=== PATIENT | male | born 1975 | race Caucasian/White ===

== ENCOUNTER 2016-05-20 18:46 | Emergency (ER) | payer BC, OTHER ==
[~2016-05-20] VITALS: Ht 182.9 cm; Wt 104.3 kg
[2016-05-20] MEDS ORDERED: TETANUS,DIPTH,PERTUSS P/F (BOOSTRIX) 0.5 ML VIAL IM STA (19:04)
[2016-05-20] MEDS ORDERED: morphine INJ 10 MG/ML 1ML (SYR OR VIAL) IM STA (19:04)
--- NOTE | 2016-05-20 19:09 | ED General ---
General Chief Complaint: Foreign Body Stated Complaint: R FOOT INJ Nursing Triage Note: pt reports he stepped on rhibar while walking barefoot. puncture wound noted to r foot. Nursing Sepsis Screen: No Definite Risk Source of Information: Patient, Spouse Exam Limitations: No Limitations History of Present Illness Time Seen by Provider: 18:56 Initial Comments 40-year-old male patient presents to the emergency Department with reports of jumping off of the bed of his truck and landing on rebar. Patient states he was barefoot at the time of incident. Reports the rebar went into the right foot. Location Injury Occurred: home Timing/Duration: 1/2 Hour Modifying Factors: worse with Medication, worse with Other (worse with palpation) Allergies and Home Medications Allergies Coded Allergies: No Known Drug Allergies (Unverified , 05/20/16) Home Medications Clindamycin HCl 300 Mg Capsule, 300 MG PO Q8H, #28 Ref 0 Prescribed by: COLT CONCEPCION on 05/20/162058 Tramadol HCl 50 Mg Tablet, 50 MG PO Q4H PRN for PAIN, #20 Ref 0 Prescribed by: COLT CONCEPCION on 05/20/162100 Constitutional: no symptoms reported Respiratory: no symptoms reported Cardiovascular: no symptoms reported Musculoskeletal: see HPI Skin: see HPI Psychiatric/Neurological: Denies Numbness, Denies Paresthesia, Denies Tingling , Denies Weakness All Other Systems Reviewed Negative Unless Noted: Yes (Negative excepted noted.) Past Yhljjvh-Twajqt-Uihtcp Hx Patient Social History Alcohol Use: Denies Use Recreational Drug Use: No Smoking Status: Former Smoker Type Used: Cigarettes 2nd Hand Smoke Exposure: No Recent Foreign Travel: No Contact w/Someone Who Travel: No Recent Infectious Disease Expo: No Recent Hopitalizations: No Immunizations Up To Date Tetanus Booster (TDap): More than 5yrs Seasonal Allergies Seasonal Allergies: No Surgeries HX Surgeries: No Respiratory Hx Respiratory Disorders: No Cardiovascular Hx Cardiac Disorders: No Neurological Hx Neurological Disorders: No Reproductive System Hx Reproductive Disorders: No Genitourinary Hx Genitourinary Disorders: No Gastrointestinal Hx Gastrointestinal Disorders: No Musculoskeletal Hx Musculoskeletal Disorders: No Endocrine Hx Endocrine Disorders: No HEENT HX ENT Disorders: No Cancer Hx Cancer: No Psychosocial Hx Psychiatric Problems: No Integumentary HX Skin/Integumentary Disorder: No Blood Transfusions Hx Blood Disorders: No Reviewed Nursing Assessment Reviewed/Agree w Nursing PMH: Yes Family Medical History Significant Family History: No Pertinent Family Hx Physical Exam Vital Signs Vital Sign - Last 12Hours 05/20/16 18:56 Temp 98.4 Pulse 80 Resp 18 B/P (MAP) 124/91 Pulse Ox 95 Capillary Refill : Less Than 3 Seconds General Appearance: No Apparent Distress, WD/WN Cardiovascular: No Edema, Normal Peripheral Pulses Extremity: Normal Capillary Refill, Normal Range of Motion, No Pedal Edema, Other (puncture wound of the plantar mid right foot without active bleeding. No visible foreign body noted. Soft tissue tenderness. Negative bony tenderness. Minimal swelling noted. Right ankle, leg, and knee negative for deformity, tenderness, or swelling.) Neurologic/Psychiatric: Alert, Oriented x3, No Motor/Sensory Deficits, Normal Mood/Affect Skin: Normal Color, Warm/Dry, No Cool, No Cyanosis, No Mottled, Other ( puncture wound of the plantar mid right foot without active bleeding. No visible foreign body noted. Soft tissue tenderness.) Progress/Results/Core Measures Results/Orders My Orders Orders - COLT CONCEPCION Foot, Right, 3 View (05/20/16 19:04) Morphine Injection (Morphine Injection (05/20/16 19:04) Dipht,Pertuss(Acell),Tet Adult (Boostrix (05/20/16 19:04) Lidocaine/Epi 1% 1:100,000 (Xylocaine /E (05/20/16 19:04) Rx-Clindamycin Capsule (Rx-Cleocin Capsu (05/20/16 21:01) Vital Signs/I&O Vital Sign - Last 12Hours 05/20/16 05/20/16 18:56 21:29 Temp 98.4 98.4 Pulse 80 68 Resp 18 18 B/P (MAP) 124/91 Pulse Ox 95 99 Blood Pressure Mean: 102 Diagnostic Imaging Diagonstic Imaging: Xray Plain Films/CT/US/NM/MRI: other (right foot) Comments FINDINGS: No fracture or traumatic malalignment. No evidence of metatarsal stress fracture no radiopaque foreign body. Small dorsal calcaneal spur. IMPRESSION: 1. No acute fracture or traumatic malalignment. 2. No radiopaque foreign body. Dictated by: Dictated on workstation # [id number] Reviewed: Reviewed by Me (radiology report reviewed by me) Departure Communication Progress Notes 2052 patient case discussed with Dr. Underwood. Recommends leaving the wound open as well as having patient soak his foot in chlorhexidine and water twice a day. Recommend follow-up in his office as an outpatient for recheck. Foot dressed with 4 x 4 gauze, Kerlix, and a 3 inch Connor wrap. Patient given a postoperative shoe and crutches. Patient instructed follow-up with Dr. Underwood as an outpatient for recheck and to call his office tomorrow for appointment time. Return precautions were discussed with the patient as described in the discharge instructions of this report. Patient voices understanding and agrees with the treatment plan. Impression Impression: Primary Impression: Puncture wound of foot, right Qualified Codes: S91.331A - Puncture wound without foreign body, right foot, initial encounter Disposition: 01 HOME, SELF-CARE Condition: Improved Departure-Patient Inst. Decision time for Depature: 20:53 Referrals: YAHIR UNDERWOOD MD,LOCAL PHYSICIAN (PCP) Primary Care Physician Patient Instructions: Wound Care (DC) Add. Discharge Instructions: All discharge instructions reviewed with patient and/or family. Voiced understanding. Medications as directed. Tylenol over the counter as directed for pain. Motrin 800 mg by mouth every 8 hours as needed for pain. Soak your right foot in chlorhexidine and water twice daily for 7-10 days. Cover wound with gauze. Shower with antibacterial soap. Ice packs as needed for pain. Elevate the right foot on pillows as much as possible. All of Dr. Underwood as an outpatient for a recheck. Contact his office for appointment time. Return to the emergency department for worsened pain, redness, fever, drainage, or any other concerns. Scripts Tramadol HCl (Tramadol HCl) 50 Mg Tablet 50 MG PO Q4H Y for PAIN, #20 TAB 0 Refills Prov: COLT CONCEPCION 05/20/16 Clindamycin HCl (Clindamycin HCl) 300 Mg Capsule 300 MG PO Q8H, #28 CAP 0 Refills Prov: COLT CONCEPCION 05/20/16 COLT CONCEPCION May 20, 2016 19:08
--- NOTE | 2016-05-20 20:03 | Diagnostic Imaging Report ---
PROCEDURE: Foot, right, 3 view. COMPARISON: None available. INDICATION: Right foot pain after penetrating injury. TECHNIQUE: Non-weight bearing AP, oblique, and lateral views of the foot. FINDINGS: No fracture or traumatic malalignment. No evidence of metatarsal stress fracture no radiopaque foreign body. Small dorsal calcaneal spur. IMPRESSION: 1. No acute fracture or traumatic malalignment. 2. No radiopaque foreign body. Dictated by: Dictated on workstation # [id number]
[2016-05-20] MEDS ORDERED: CLIN300C11 PO (20:59)
[2016-05-20] MEDS ORDERED: TRAM50TA2 PO (21:01)
[2016-05-20] MEDS ORDERED: RX-CLINDAMYCIN 150 MG (CLEOCIN) CAP PPK#4 PO STA (21:01)
[2016-05-20] MEDS: LIDOCAINE/EPI 1%-1:100,000 (XYLOCAINE) 20ML INJ STA ×2 (21:05→22:48)
[2016-05-20 21:29] VITALS: BP 102/71
== END 2016-05-20 21:29 | disposition home or self-care (01) ==
LOC: ER 18:49
DX: S91.331A Puncture wound without foreign body, right foot, initial encounter (principal); Z23 Encounter for immunization; V58.4XXA Person boarding or alighting a pick-up truck or van injured in noncollision transport accident, initial encounter; Y99.8 Other external cause status
CPT/HCPCS: 73630; 90471; 90715; 96372; 99283

== ENCOUNTER 2016-11-27 20:38 | Emergency (ER) | payer BC ==
[~2016-11-27] VITALS: Ht 175.3 cm; Wt 81.6 kg
[~2016-11-27 20:38] MED LIST: CLIN300C11 PO; TRAM50TA2 PO
--- NOTE | 2016-11-27 22:19 | ED Back Pain ---
General Chief Complaint: Back Problems Stated Complaint: BACK PAIN Nursing Triage Note: c/o low back pain. Pt working on a garage door this blade mcneil, stepped over it and felt increased pain to low back. States back has been sore for the last week. Nursing Sepsis Screen: No Definite Risk Source of Information: Patient Exam Limitations: No Limitations (COLT CONCEPCION) History of Present Illness Time Seen by Provider: 22:19 Initial Comments patient seen, evaluated, and patient care provided by Dr. Alvares. (COLT CONCEPCION) Initial Comments Here with report of low back pain. He states this week that he has had some intermittent back pain. 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 He doesn't remember a specific injury. He was at home tonight and was getting ready to put up an automatic garage door. He had laid out on the floor and stepped over it when he had severe mid back pain. This did cause spasms and he fell to the floor. No injuries on the fall. Denies numbness or tingling between his legs. Denies bowel or bladder incontinence. Denies weakness of the legs. Pain is better when he is laying face down and worse when he tries to stand up. Location: Lumbar Spine, Paraspinous Muscles Timing/Duration: 1 Week, Getting Worse, Intermittent Severity: Moderate Pain/Injury Location: Back Radiation: Buttocks Method of Injury: Unknown Modifying Factors: Worse With Movement, Improves With Rest Associated Symptoms: muscle spasms, No weakness, No numbness in legs/feet, No tingling in legs/feet, No sensory/motor loss, lower back pain, No loss of bladder control, No loss of bowel control (SYL ALVARES MD) Allergies and Home Medications Allergies Coded Allergies: No Known Drug Allergies (Unverified , 05/20/16) Home Medications Cyclobenzaprine HCl 10 Mg Tablet, 10 MG PO Q8H PRN for SPASMS, #15 Ref 0 Prescribed by: SYL ALVARES on 11/27/162242 Hydrocodone/Acetaminophen 1 Each Tablet, 1 EACH PO Q6H, #14 Ref 0 Prescribed by: SYL ALVARES on 11/27/162242 Prednisone 20 Mg Tab, 40 MG PO DAILY, #12 Ref 0 Prescribed by: SYL ALVARES on 11/27/162242 Constitutional: see HPI, No chills, No fever Respiratory: no symptoms reported Cardiovascular: no symptoms reported Musculoskeletal: see HPI, back pain, muscle stiffness, muscle cramps Skin: no symptoms reported Psychiatric/Neurological: See HPI (SYL ALVARES MD) Past Ycxqlya-Pdsrii-Kwlxax Hx Patient Social History Alcohol Use: Denies Use Recreational Drug Use: No Type Used: Cigarettes Former Smoker, Quit: Dec 05, 2013 2nd Hand Smoke Exposure: No Recent Foreign Travel: No Contact w/Someone Who Travel: No Recent Infectious Disease Expo: No Recent Hopitalizations: No (COLT CONCEPCION) Immunizations Up To Date Tetanus Booster (TDap): More than 5yrs (COLT CONCEPCION) Seasonal Allergies Seasonal Allergies: No (COLT CONCEPCION) Surgeries History of Surgeries: Yes (carpal tunnel) (COLT CONCEPCION) Respiratory History of Respiratory Disorde: No (COLT CONCEPCION) Cardiovascular History of Cardiac Disorders: No (COLT CONCEPCION) Neurological History of Neurological Disord: No (COLT CONCEPCION) Reproductive System Hx Reproductive Disorders: No (COLT CONCEPCION) Genitourinary History of Genitourinary Disor: No (COLT CONCEPCION) Gastrointestinal History of Gastrointestinal Di: No (COLT CONCEPCION) Musculoskeletal History of Musculoskeletal Dis: No (COLT CONCEPCION) Endocrine History of Endocrine Disorders: No (COLT CONCEPCION) HEENT History of HEENT Disorders: No (COLT CONCEPCION) Cancer History of Cancer: No (COLT CONCEPCION) Psychosocial History of Psychiatric Problem: No (COLT CONCEPCION) Blood Transfusions History of Blood Disorders: No (COLT CONCEPCION) Reviewed Nursing Assessment Reviewed/Agree w Nursing PMH: Yes (SYL ALVARES MD) Family Medical History Significant Family History: No Pertinent Family Hx (COLT CONCEPCION) Physical Exam Vital Signs Vital Sign - Last 12Hours 11/27/16 21:41 Temp 97.5 Pulse 88 B/P (MAP) 125/89 Pulse Ox 98 O2 Delivery Room Air (SYL ALVARES MD) Vital Signs Capillary Refill : Less Than 3 Seconds (COLT CONCEPCION) General Appearance: No Apparent Distress, WD/WN Cardiovascular: Regular Rate, Rhythm, No Murmur Respiratory: Lungs Clear, Normal Breath Sounds Gastrointestinal: Non Tender, Soft Back: Muscle Spasm, No Vertebral Tenderness Extremity: Normal Inspection, Normal Range of Motion, Non Tender, No Calf Tenderness Neurologic/Psychiatric: Alert, No Motor/Sensory Deficits, Normal Mood/Affect Skin: Normal Color, Warm/Dry (SYL ALVARES MD) Progress/Results/Core Measures Results/Orders My Orders Orders - SYL ALVARES MD Hydrocodone/Apap 10/325 Tablet (Lortab 1 (11/27/16 22:32) Orphenadrine Injection (Norflex Injectio (11/27/16 22:32) Prednisone Tablet (Deltasone Tablet) (11/27/16 22:45) Ketorolac Injection (Toradol Injection) (11/27/16 22:32) (SYL ALVARES MD) Vital Signs/I&O Vital Sign - Last 12Hours 11/27/16 21:41 Temp 97.5 Pulse 88 B/P (MAP) 125/89 Pulse Ox 98 O2 Delivery Room Air (SYL ALVARES MD) Blood Pressure Mean: 101 Progress Note : Progress Note Seen and evaluated. Hydrocodone 10/325 one tab by mouth given. Toradol 60 mg IM and Norflex 60 mg IM ordered. Prednisone 40 mg by mouth given. Discharged home with return precautions. Patient verbalize understanding instructions and agreement with plan. (SYL ALVARES MD) Departure Impression Impression: Primary Impression: Back strain Qualified Codes: S39.012A - Strain of muscle, fascia and tendon of lower back , initial encounter Disposition: HOME, SELF-CARE Condition: Stable Departure-Patient Inst. Decision time for Depature: 22:40 (SYL ALVARES MD) Referrals: NO,LOCAL PHYSICIAN (PCP/Family) Primary Care Physician Patient Instructions: Radiculopathy (DC), Lumbar Muscle Strain (DC) Add. Discharge Instructions: All discharge instructions reviewed with patient and/or family. Voiced understanding. Take medications as directed. Follow-up with your DrCelso in a few days for recheck. You may take ibuprofen 800 mg every 8 hours as needed for pain. You may try icy hot with lidocaine or [place] pass with lidocaine patches to the area of concern per package directions. Return for worse pain, weakness, numbness between her legs, difficulty with going to the bathroom or walking or other concerns as needed. Scripts Prednisone (Prednisone) 20 Mg Tab 40 MG PO DAILY, #12 TAB 0 Refills Prov: SYL ALVARES MD 11/27/16 Hydrocodone/Acetaminophen (Hydrocodon-Acetaminoph 7.5-325) 1 Each Tablet 1 EACH PO Q6H, #14 TAB 0 Refills Prov: SYL ALVARES MD 11/27/16 Cyclobenzaprine HCl (Cyclobenzaprine HCl) 10 Mg Tablet 10 MG PO Q8H Y for SPASMS, #15 TAB 0 Refills Prov: SYL ALVARES MD 11/27/16 COLT CONCEPCION Nov 27, 2016 22:19 SYL ALVARES MD Nov 27, 2016 22:39
[2016-11-27] MEDS ORDERED: ORPHENADRINE 60 MG/2 ML (NORFLEX) AMP IM STA (22:32)
[2016-11-27] MEDS ORDERED: HYDROcodone/APAP 10 MG/325 MG (LORTAB) TAB PO STA (22:32)
[2016-11-27] MEDS ORDERED: KETOROLAC 60 MG/2 ML VIAL IM STA (22:32)
[2016-11-27] MEDS ORDERED: PRD20T PO (22:43)
[2016-11-27] MEDS ORDERED: CYCL10TA9 PO (22:43)
[2016-11-27] MEDS ORDERED: HYDR-3816 PO (22:43)
[2016-11-27] MEDS ORDERED: predniSONE 20 MG TAB PO ONE (22:45)
[2016-11-27 23:05] VITALS: BP 126/84
== END 2016-11-27 23:05 | disposition home or self-care (01) ==
LOC: EDUNIT# 20:38 → ER 20:40
DX: S39.012A Strain of muscle, fascia and tendon of lower back, initial encounter (principal); Z87.891 Personal history of nicotine dependence; X58.XXXA Exposure to other specified factors, initial encounter; Y92.009 Unspecified place in unspecified non-institutional (private) residence as the place of occurrence of the external cause
CPT/HCPCS: 96372; 99284

== ENCOUNTER → 2016-12-10 | Outpatient (CLI) | payer OTHER, BC ==
[~2016-12-10] MED LIST changes: +CYCL10TA9 PO; +HYDR-3816 PO; +PRD20T PO
--- NOTE | 2016-12-10 18:35 | Diagnostic Imaging Report ---
CLINICAL INDICATION: Patient status post fall on back from 5 feet. Patient has right lateral lumbar pain and difficulty ambulating. EXAM: X-ray of the lumbar spine, five views including oblique views. COMPARISON: None. FINDINGS: There is no evidence of acute lumbar spine fracture or dislocation. There is no pars defect seen. There are mildly hypertrophic spurs involving the mid to lower lumbar spine. The intervertebral disc heights are well maintained. The sacroiliac joints, sacrum, and visualized portions of the pelvis are unremarkable. IMPRESSION: Mild lumbar spine degenerative disease with no acute fracture or dislocation. Dictated by: Dictated on workstation # [id number]
== END ==
LOC: RAD 17:39
PROVIDERS: ATTEND Nurse Practitioner Family
DX: S39.92XA Unspecified injury of lower back, initial encounter (principal); W19.XXXA Unspecified fall, initial encounter; Y99.8 Other external cause status
CPT/HCPCS: 72110